=== PATIENT | male | born 1975 | race Caucasian/White ===

== ENCOUNTER 2018-08-15 20:47 | Emergency (ER) | payer MEDICAID ==
[~2018-08-15] VITALS: Ht 175.3 cm; Wt 102.0 kg
[2018-08-15 23:10] LABS: BASOPHILS % 0.6 % (0.0-2.0); EOSINOPHILS % 1.7 % (0.0-5.0); HEMATOCRIT. 42.1 % (42.0-52.0); HEMOGLOBIN. 14.5 g/dL (14.0-18.0); LYMPHOCYTES % 35.4 % (20.0-50.0); MEAN CORPUSCULAR HEMOGLOBIN 32.5 pg (28.0-32.0); MEAN CORPUSCULAR VOLUME 94.6 fL (80.0-94.0); MEAN PLATELET VOLUME 8.5 fl (7.4-10.4); MONOCYTES % 8.8 % (2.0-8.0); NEUTROPHILS % 53.5 % (40.0-76.0); PLATELET 334 x1000/uL (130-400); RED BLOOD CELL COUNT 4.45 mill/uL (4.7-6.1)
[2018-08-15 23:22] LABS: CHLORIDE 104 mEq/L (98-107)
[2018-08-16 00:40] VITALS: BP 103/65
== END 2018-08-16 00:59 | disposition home or self-care (01) ==
LOC: ER 23:43
DX: L03.90 Cellulitis, unspecified (principal); F17.210 Nicotine dependence, cigarettes, uncomplicated; F14.10 Cocaine abuse, uncomplicated
CPT/HCPCS: 36415; 99283

== ENCOUNTER 2019-05-09 11:40 | Emergency (ER) | payer MEDICAID ==
[~2019-05-09] VITALS: Ht 175.3 cm; Wt 99.0 kg
[2019-05-09 12:44] VITALS: BP 191/94
== END 2019-05-09 15:06 | disposition home or self-care (01) ==
LOC: ER 11:40
DX: M54.5 Low back pain (principal); M54.2 Cervicalgia; I10 Essential (primary) hypertension; V49.49XA Driver injured in collision with other motor vehicles in traffic accident, initial encounter; Y93.89 Activity, other specified; Y92.89 Other specified places as the place of occurrence of the external cause; Y99.8 Other external cause status
CPT/HCPCS: 93005; 99283

== ENCOUNTER 2019-11-22 21:43 | Emergency (ER) | payer MEDICAID ==
[~2019-11-22] VITALS: Ht 175.3 cm; Wt 100.0 kg
[2019-11-22 22:11] VITALS: BP 143/85
[2019-11-22] MEDS ORDERED: KETOROLAC 60MG/2ML VIAL IM ONE (22:30)
== END 2019-11-23 00:07 | disposition home or self-care (01) ==
LOC: ER 21:43
DX: R05 Cough (principal); M54.9 Dorsalgia, unspecified; I10 Essential (primary) hypertension
CPT/HCPCS: 96372; 99283; J1885

== ENCOUNTER 2022-09-16 18:49 | Emergency (ER) | payer MEDICAID ==
[~2022-09-16] VITALS: Ht 175.3 cm; Wt 111.0 kg
[2022-09-16] MEDS ORDERED: TETANUS, DIPHTHERIA, PERTUSSIS VAC/PF 0.5ML (>10YR OLD) IM ONE ×2 (19:15→22:00)
[2022-09-16] MEDS ORDERED: IBUPROFEN 600MG TABLET PO ONE (19:15)
[2022-09-16] MEDS ORDERED: AMOXICILLIN/POTASSIUM CLAVULANATE 875/125MG TAB PO ONE (19:15)
[2022-09-16] MEDS ORDERED: AMOX1TAB16 MT (19:52)
[2022-09-16] MEDS ORDERED: ACET-2708 MT (19:52)
[2022-09-16 21:15] VITALS: BP 136/91
[2022-09-16] MEDS ORDERED: IBUPROFEN 600MG TABLET PO NR (21:15)
[2022-09-16] MEDS ORDERED: AMOXICILLIN/POTASSIUM CLAVULANATE 875/125MG TAB PO NR (21:15)
== END 2022-09-16 21:00 | disposition home or self-care (01) ==
LOC: ER 18:49
DX: S91.332A Puncture wound without foreign body, left foot, initial encounter (principal); W22.8XXA Striking against or struck by other objects, initial encounter; Y93.89 Activity, other specified; Y92.9 Unspecified place or not applicable; Z23 Encounter for immunization; Z71.85 Encounter for immunization safety counseling
CPT/HCPCS: 73630; 90471; 90715; 99283